=== PATIENT | female | born 1935 | race Caucasian/White ===

== ENCOUNTER 2018-07-20 11:52 | Inpatient (IN) ==
[2018-07-20 12:03] VITALS: BMI 23.0
[2018-07-20 12:43] LABS: BILIRUBIN,URINE NEGATIVE (NEGATIVE); BLOOD/HEMOGLOBIN,URINE 1+ (NEGATIVE); GLUCOSE, URINE 1+ (NEGATIVE); KETONES,URINE 2+ (NEGATIVE); LEUKOCYTE ESTERASE ,URINE 2+ (NEGATIVE); NITRITES,URINE NEGATIVE (NEGATIVE); PROTEIN,URINE 2+ (NEGATIVE); UROBILINOGEN,URINE NORMAL (NORMAL)
[2018-07-20 12:51] LABS: APPEARANCE,URINE CLEAR (CLEAR); BACTERIA,URINE TRACE /HPF (NEGATIVE); COLOR,URINE YELLOW (YELLOW); RBC,URINE 0-2 /HPF (NONE SEEN); SQUAMOUS EPITHELIAL CELL,UR RARE /HPF (NEGATIVE)
[2018-07-20 12:52] LABS: HYALINE CASTS, URINE RARE /LPF (NEGATIVE); MUCUS,URINE RARE /HPF (NEGATIVE)
[2018-07-20] MEDS ORDERED: TYLENOL 325 MG TAB PO ONE ×2 (13:00→13:02)
[2018-07-20 13:42] LABS: BASOPHILS % (AUTO) 0.2 % (0.2-1.0); HEMATOCRIT 35.8 % (36.0-47.0); HEMOGLOBIN 12.5 g/dL (12.0-16.0); LYMPHOCYTES % (AUTO) 7.6 % (21.0-51.0); MEAN CORPUSCULAR HEMOGLOBIN 31.6 pg (27.0-34.0); MEAN CORPUSCULAR HGB CONC 34.9 g/dL (33.0-35.0); MEAN CORPUSCULAR VOLUME 90.6 fL (80.0-100.0); MEAN PLATELET VOLUME 7.7 fL (7.4-11.0); MONOCYTES # (AUTO) 1.1 x10^3/uL (0.3-0.8); MONOCYTES % (AUTO) 8.7 % (0.0-13.0); NEUTROPHILS # (AUTO) 10.8 x10^3/uL (2.2-4.8); NEUTROPHILS % (AUTO) 83.5 % (42.0-75.0); PLATELET COUNT 277 X10^3/uL (150.0-450.0); RED BLOOD COUNT 3.95 X10^6/uL (3.5-5.4); RED CELL DISTRIBUTION WIDTH 12.3 % (11.6-16.5); WHITE BLOOD COUNT 12.9 X10^3/uL (3.6-10.0)
[2018-07-20 13:49] LABS: ALANINE AMINOTRANSFERASE 23 Units/L (12-78); ALBUMIN 3.4 g/dL (3.4-5.0); ALKALINE PHOSPHATASE 44 Units/L (46-116); ASPARTATE AMINO TRANSFERASE 21 Units/L (15-37); BLOOD UREA NITROGEN 16 mg/dL (7-18); CALCIUM 8.5 mg/dL (8.5-10.1); CARBON DIOXIDE 29.3 mmol/L (21-32); CHLORIDE 100 mmol/L (98-107); COR NA(FOR HYPERGLY) 137 mmol/L (136-145); CREATININE 1.33 mg/dL (0.55-1.02); SODIUM 137 mmol/L (136-145); TOTAL PROTEIN 6.6 g/dL (6.4-8.2); eGFR NON BLACK RACES 41 (>60)
[2018-07-20 13:51] LABS: LACTIC ACID 1.1 mmol/L (0.4-2.0)
[2018-07-20] MEDS ORDERED: NS 1000 ML 1,000 ML IV SCH (14:00)
--- NOTE | 2018-07-20 14:15 | RAD ---
HISTORY: Fever. Falls. Study: AP portable chest Comparison: None Findings: The lungs are clear. The heart size is borderline enlarged. Mild tortuosity of the aorta is noted. Mild degenerative changes present within both shoulders. I see no definite acute bony abnormalities . IMPRESSION: 1. Borderline cardiomegaly without evidence of failure. Reported By:
--- NOTE | 2018-07-20 16:01 | CT ---
LUMBAR SPINE CT WITHOUT IV CONTRAST CLINICAL INDICATION: Multiple falls TECHNIQUE: Multiple-row detector helical CT examination of the lumbar spine. Axial, sagittal, and cor onal reconstructed images. Dose reduction techniques including Automated Exposure Control (AEC) and a djustment of mA and kV were utlized. COMPARISON: None. FINDINGS: There is no evidence of acute fracture or subluxation. Normal alignment is maintained without scolios is or listhesis. Vertebral body heights are maintained. No aggressive osseous lesions are identified. Severe multilevel degenerative disc disease with multiple levels of disc bulging worst at L2-L3 and L3-L4. Extensive facet arthropathy. IMPRESSION: 1. Severe multilevel degenerative disc disease and disc bulges as above. No evidence of acute abnorma lity. There is likely severe stenosis at the L3-L4 level. Reported By:
--- NOTE | 2018-07-20 16:07 | DR.GENAD ---
HPI Time Seen Time Seen by Provider: 07/20/18 13:13 PCP Primary Care Physician: BRIAN MELARA Complaint/Symptoms Chief Complaint Doctors Comments: Patient was found at home on the floor by her daughter, does not know how long she was there. She does admit that she has been sleeping a lot the past three days and falling. Chief Complaint:: PATIENT HAS BEEN SLEEPING ALOT FOR THE LAST 2-3 DAYS, BACK PAIN, FALLEN TWICE IN THE LAST 2 DAYS. SHE FELL THIS MORNING IN THE BATHROOM AND LAYED THERE ABOUT 1 HOUR. NOT EATING OR DRINKING/FEVER. Source History Provided: Patient and Family Member Mode of Arrival Mode of Arrival: Wheelchair Timing Onset of Chief Complaint: 07/17/18 PMH PMH Past Medical History: Yes Past Medical History: Hypertension Past Surgical History: Yes Surgical History: Hysterectomy Family History History of Family Medical Conditions: No Social History Does patient currently use any type of tobacco product: No Have you used tobacco products in the last 12 months: No Type of Tobacco Use: None Does any household member use tobacco: No Alcohol Use: None Do you use any recreational Drugs:: No Lives With: Family Lives Where: Home infectious screening In the last 2 months have you had wt loss of >10#?: NO Have you had fever, night sweats or hemotysis?: No Have you traveled outside the country in the last 6 months?: No Isolation: Standard PE Vital Signs Vitals: Temperature 99.3 F Pulse Rate [Left Brachial] 79 Pulse Rate 105 Respiratory Rate 20 Blood Pressure [Left Arm] 140/65 Blood Pressure 143/66 O2 Sat by Pulse Oximetry 96 General Limitations: No Limitations (Alert, responsive in NAD) and Altered Mental Status General Appearance: Alert and In No Apparent Distress; negative In Distress Head Head Exam: Normal Inspection, Atraumatic and Normocephalic Eyes Eye exam: Normal Appearance, PERRL and EOMI ENT ENT Exam: Normal Exam, Normal Oropharynx and Normal External Ear Exam External Ear Exam: Normal External Inspection; negative Auricular Hematoma and Auricular Trauma TM/Canal Exam: Bilateral: Normal Mouth Exam: Normal Inspection Throat Exam: Normal Inspection Neck Neck Exam: Normal Inspection and Full ROM Chest Chest Inspection: Normal Inspection and Symmetric Chest Wall Rise Respiratory Respiratory Exam: Normal Lung Sounds Bilat; negative Accessory Muscle Use Respiratory Exam: Bilateral: Clear to Auscultation Cardiovascular Cardiovascular Exam: Regular Rate and Normal Rhythm Abdominal Exam Abdominal Exam: Normal Inspection, Normal Bowel Sounds, Soft and Tenderness; negative Distention, Guarding, Rebound and Rigidity Abdominal Tenderness: RLQ Extremities Extremities Exam: Normal Inspection and Full ROM Back Back Exam: Normal Inspection and Full ROM; negative (R) CVA Tenderness, (L) CVA Tenderness and Muscle Spasm Neurologic Neurological Exam: Alert, Oriented X3 and CN II-XII Intact Psychiatric Psychiatric Exam: Normal Affect, Normal Mood and Flat Affect Skin Skin Exam: Warm, Dry and Intact COURSE Treatment Treatment: NS ROR Labs Reviewed Laboratory Results Reviewed?: Yes Result Diagrams: 07/20/18 13:18 07/20/18 13:18 Laboratory: WBC 12.9 X10^3/uL (3.6-10.0) H 07/20/18 13:18 RBC 3.95 X10^6/uL (3.5-5.4) 07/20/18 13:18 Hgb 12.5 g/dL (12.0-16.0) 07/20/18 13:18 Hct 35.8 % (36.0-47.0) L 07/20/18 13:18 MCV 90.6 fL (80.0-100.0) 07/20/18 13:18 MCH 31.6 pg (27.0-34.0) 07/20/18 13:18 MCHC 34.9 g/dL (33.0-35.0) 07/20/18 13:18 RDW 12.3 % (11.6-16.5) 07/20/18 13:18 Plt Count 277 X10^3/uL (150.0-450.0) 07/20/18 13:18 MPV 7.7 fL (7.4-11.0) 07/20/18 13:18 Neut % (Auto) 83.5 % (42.0-75.0) H 07/20/18 13:18 Lymph % (Auto) 7.6 % (21.0-51.0) L 07/20/18 13:18 Castro % (Auto) 8.7 % (0.0-13.0) 07/20/18 13:18 Eos % (Auto) 0.0 % (0.9-2.9) L 07/20/18 13:18 Baso % (Auto) 0.2 % (0.2-1.0) 07/20/18 13:18 Neut # (Auto) 10.8 x10^3/uL (2.2-4.8) H 07/20/18 13:18 Lymph # (Auto) 1.0 X10^3/uL (1.3-2.9) L 07/20/18 13:18 [place] # (Auto) 1.1 x10^3/uL (0.3-0.8) H 07/20/18 13:18 Eos # (Auto) 0.0 x10^3/uL (0.0-0.2) 07/20/18 13:18 Baso # (Auto) 0.0 X10^3/uL (0.0-0.1) 07/20/18 13:18 Absolute Nucleated RBC 0.0 /100WBC 07/20/18 13:18 Sodium 137 mmol/L (136-145) 07/20/18 13:18 Corrected Sodium 137 mmol/L (136-145) 07/20/18 13:18 Potassium 3.6 mmol/L (3.5-5.1) 07/20/18 13:18 Chloride 100 mmol/L (98-107) 07/20/18 13:18 Carbon Dioxide 29.3 mmol/L (21-32) 07/20/18 13:18 BUN 16 mg/dL (7-18) 07/20/18 13:18 Creatinine 1.33 mg/dL (0.55-1.02) H 07/20/18 13:18 Est GFR (MDRD) Af Amer 49 (>60) L 07/20/18 13:18 Est GFR (MDRD) Non-Af 41 (>60) L 07/20/18 13:18 Glucose 115 mg/dL (65-99) H 07/20/18 13:18 Lactic Acid 1.1 mmol/L (0.4-2.0) 07/20/18 13:18 Calcium 8.5 mg/dL (8.5-10.1) 07/20/18 13:18 Corrected Calcium TNP 07/20/18 13:18 Total Bilirubin 0.60 mg/dL (0.2-1.0) 07/20/18 13:18 AST 21 Units/L (15-37) 07/20/18 13:18 ALT 23 Units/L (12-78) 07/20/18 13:18 Alkaline Phosphatase 44 Units/L (46-116) L 07/20/18 13:18 C-Reactive Protein 2.70 mg/L (0-3.0) 07/20/18 13:18 Total Protein 6.6 g/dL (6.4-8.2) 07/20/18 13:18 Albumin 3.4 g/dL (3.4-5.0) 07/20/18 13:18 Globulin 3.2 g/dL (2.5-4.5) 07/20/18 13:18 Albumin/Globulin Ratio 1.1 Ratio (1.1-2.1) 07/20/18 13:18 Specimen Type Clean catch urine 07/20/18 12:32 Urine Color Yellow (YELLOW) 07/20/18 12:32 Urine Appearance Clear (CLEAR) 07/20/18 12:32 Urine pH 6.0 (5.0 - 8.0) 07/20/18 12:32 Ur Specific [place] 1.020 (1.000-1.030) 07/20/18 12:32 Urine Protein 2+ (NEGATIVE) 07/20/18 12:32 Urine Glucose (UA) 1+ (NEGATIVE) 07/20/18 12:32 Urine Ketones 2+ (NEGATIVE) 07/20/18 12:32 Urine Occult Blood 1+ (NEGATIVE) 07/20/18 12:32 Urine Nitrite Negative (NEGATIVE) 07/20/18 12:32 Urine Bilirubin Negative (NEGATIVE) 07/20/18 12:32 Urine Urobilinogen Normal (NORMAL) 07/20/18 12:32 Ur Leukocyte Esterase 2+ (NEGATIVE) 07/20/18 12:32 Urine RBC 0-2 /HPF (NONE SEEN) 07/20/18 12:32 Urine WBC 0-2 /HPF (NONE SEEN) 07/20/18 12:32 Ur Squamous Epith Cells Rare /HPF (NEGATIVE) 07/20/18 12:32 Urine Bacteria Trace /HPF (NEGATIVE) 07/20/18 12:32 Hyaline Casts Rare /LPF (NEGATIVE) 07/20/18 12:32 Urine Mucus Rare /HPF (NEGATIVE) 07/20/18 12:32 Ur Culture Indicated? No/not indicated 07/20/18 12:32 XRAY XRAY Findings: Chest: Borderline cardiomegaly without evidence of failure ADDITIONAL NOTES Additional Notes Additional Notes: Spoke with Dr gibbons concerning patient and he agree to admit for further evaluation and treatment.
--- NOTE | 2018-07-20 17:12 | CT ---
HEAD CT WITHOUT IV CONTRAST CLINICAL INDICATION: Been sleeping a lot TECHNIQUE: Axial CT images from skull base to vertex without IV contrast.Dose reduction techniques in cluding Automated Exposure Control (AEC) and adjustment of mA and kV were utlized. COMPARISON: None FINDINGS: Diffuse patchy and confluent white matter hypoattenuation with associated volume loss. There is no e vidence of acute infarction, intracranial hemorrhage, mass or mass effect, or abnormal extra-axial co llection. The density of the larger dural venous sinuses is normal. Age-related, ex-vacuo dilatation of the ventricles and sulci. The skull base and calvarium are normal. The included paranasal sinuses and mastoid air cells are predominantly clear. IMPRESSION: 1. No acute intracranial abnormality. 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 Reported By:
[2018-07-20 18:17] LABS: CKMB % 0.8 % (<4); CREATINE KINASE MB 1.4 ng/mL (0-4.0); TROPONIN I 0.02 ng/mL (0-1.5)
[2018-07-20] MEDS ORDERED: TOPROL XL PO ONE (18:26)
[2018-07-20] MEDS: TOPROL XL PO SCH (18:30)
[2018-07-20] MEDS: PROCARDIA XL PO SCH (18:30)
[2018-07-20] MEDS: NS 1000 ML 1,000 ML IV SCH (18:30)
[2018-07-21] MEDS: TYLENOL 325 MG TAB PO PRN ×2 (00:02→12:09)
[2018-07-21] MEDS: NS 1000 ML 1,000 ML IV SCH ×2 (00:40→09:52)
[2018-07-21 06:13] LABS: BASOPHILS # (AUTO) 0.1 X10^3/uL (0.0-0.1); BASOPHILS % (AUTO) 0.5 % (0.2-1.0); EOSINOPHILS % (AUTO) 0.1 % (0.9-2.9); HEMATOCRIT 37.9 % (36.0-47.0); HEMOGLOBIN 13.6 g/dL (12.0-16.0); LYMPHOCYTES # (AUTO) 1.4 X10^3/uL (1.3-2.9); LYMPHOCYTES % (AUTO) 9.9 % (21.0-51.0); MEAN CORPUSCULAR HEMOGLOBIN 32.4 pg (27.0-34.0); MEAN CORPUSCULAR HGB CONC 35.8 g/dL (33.0-35.0); MEAN CORPUSCULAR VOLUME 90.4 fL (80.0-100.0); MEAN PLATELET VOLUME 8.1 fL (7.4-11.0); MONOCYTES # (AUTO) 1.2 x10^3/uL (0.3-0.8); MONOCYTES % (AUTO) 8.7 % (0.0-13.0); NEUTROPHILS # (AUTO) 11.5 x10^3/uL (2.2-4.8); NEUTROPHILS % (AUTO) 80.8 % (42.0-75.0); PLATELET COUNT 244 X10^3/uL (150.0-450.0); RED BLOOD COUNT 4.19 X10^6/uL (3.5-5.4); RED CELL DISTRIBUTION WIDTH 12.3 % (11.6-16.5); WHITE BLOOD COUNT 14.2 X10^3/uL (3.6-10.0)
[2018-07-21 06:37] LABS: ALANINE AMINOTRANSFERASE 22 Units/L (12-78); ALBUMIN 3.2 g/dL (3.4-5.0); ALKALINE PHOSPHATASE 45 Units/L (46-116); ASPARTATE AMINO TRANSFERASE 25 Units/L (15-37); BLOOD UREA NITROGEN 13 mg/dL (7-18); CALCIUM 8.5 mg/dL (8.5-10.1); CARBON DIOXIDE 28.2 mmol/L (21-32); CHLORIDE 105 mmol/L (98-107); COR CA(FOR HYPOALB) 9.1 mg/dL (8.5-10.1); COR NA(FOR HYPERGLY) 142 mmol/L (136-145); CREATININE 0.89 mg/dL (0.55-1.02); SODIUM 142 mmol/L (136-145); TOTAL PROTEIN 6.8 g/dL (6.4-8.2); eGFR NON BLACK RACES > 60 (>60)
[2018-07-21] MEDS ORDERED: POTASSIUM CHLORIDE LIQ 20 MEQ UDC PO PRN (06:56)
[2018-07-21] MEDS ORDERED: K-RIDER 10 MEQ/NS 100 ML 10 MEQ/100 ML BAG IV PRN (06:56)
[2018-07-21] MEDS ORDERED: K-LYTE EFFERVESCENT PO PRN (06:56)
[2018-07-21] MEDS ORDERED: POTASSIUM CHL 40 MEQ/NS 0.45% 500 ML IV PRN (06:56)
[2018-07-21] MEDS ORDERED: POTASSIUM CHL 60 MEQ/NS 0.45% 500 ML IV PRN (06:56)
[2018-07-21] MEDS ORDERED: TOPROL XL PO ONE (08:06)
[2018-07-21] MEDS: PROCARDIA XL PO SCH (08:34)
[2018-07-21] MEDS: TOPROL XL PO SCH (08:34)
[2018-07-21 11:59] LABS: BASOPHILS # (AUTO) 0.1 X10^3/uL (0.0-0.1); BASOPHILS % (AUTO) 0.7 % (0.2-1.0); HEMATOCRIT 36.5 % (36.0-47.0); HEMOGLOBIN 12.7 g/dL (12.0-16.0); LYMPHOCYTES # (AUTO) 1.1 X10^3/uL (1.3-2.9); LYMPHOCYTES % (AUTO) 7.8 % (21.0-51.0); MEAN CORPUSCULAR HEMOGLOBIN 31.8 pg (27.0-34.0); MEAN CORPUSCULAR HGB CONC 34.8 g/dL (33.0-35.0); MEAN CORPUSCULAR VOLUME 91.4 fL (80.0-100.0); MEAN PLATELET VOLUME 8.2 fL (7.4-11.0); MONOCYTES % (AUTO) 7.1 % (0.0-13.0); NEUTROPHILS # (AUTO) 11.4 x10^3/uL (2.2-4.8); NEUTROPHILS % (AUTO) 84.4 % (42.0-75.0); PLATELET COUNT 232 X10^3/uL (150.0-450.0); RED BLOOD COUNT 3.99 X10^6/uL (3.5-5.4); RED CELL DISTRIBUTION WIDTH 12.5 % (11.6-16.5); WHITE BLOOD COUNT 13.6 X10^3/uL (3.6-10.0)
[2018-07-21] MEDS: LOVENOX INJ 30 MG SYR SC SCH (13:44)
[2018-07-21] MEDS ORDERED: NS 100 ML IV + SPIKE MINIBAG* 100 ML IV ONE ×2 (13:45→20:12)
[2018-07-21] MEDS: ZOSYN VIAL 3.375 GRAMS IV SCH ×2 (13:48→21:04)
[2018-07-21] MEDS: COLACE CAP 100 MG PO SCH (21:03)
[2018-07-21] MEDS: MOTRIN TAB 600 MG PO PRN (21:03)
[2018-07-21] MEDS: MILK OF MAGNESIA PO SCH (21:03)
[2018-07-22] MEDS: NS 1000 ML 1,000 ML IV SCH ×4 (04:27→21:14)
[2018-07-22 06:10] LABS: BASOPHILS # (AUTO) 0.1 X10^3/uL (0.0-0.1); BASOPHILS % (AUTO) 0.7 % (0.2-1.0); EOSINOPHILS % (AUTO) 0.2 % (0.9-2.9); HEMATOCRIT 35.7 % (36.0-47.0); HEMOGLOBIN 12.5 g/dL (12.0-16.0); LYMPHOCYTES # (AUTO) 1.6 X10^3/uL (1.3-2.9); LYMPHOCYTES % (AUTO) 15.1 % (21.0-51.0); MEAN CORPUSCULAR HEMOGLOBIN 32.1 pg (27.0-34.0); MEAN CORPUSCULAR VOLUME 91.7 fL (80.0-100.0); MEAN PLATELET VOLUME 8.5 fL (7.4-11.0); MONOCYTES % (AUTO) 9.7 % (0.0-13.0); NEUTROPHILS # (AUTO) 7.8 x10^3/uL (2.2-4.8); NEUTROPHILS % (AUTO) 74.3 % (42.0-75.0); PLATELET COUNT 217 X10^3/uL (150.0-450.0); RED CELL DISTRIBUTION WIDTH 12.3 % (11.6-16.5); WHITE BLOOD COUNT 10.5 X10^3/uL (3.6-10.0)
[2018-07-22 06:20] LABS: ALANINE AMINOTRANSFERASE 24 Units/L (12-78); ALBUMIN 2.6 g/dL (3.4-5.0); ALKALINE PHOSPHATASE 40 Units/L (46-116); ASPARTATE AMINO TRANSFERASE 25 Units/L (15-37); BLOOD UREA NITROGEN 13 mg/dL (7-18); CALCIUM 8.1 mg/dL (8.5-10.1); CARBON DIOXIDE 29.1 mmol/L (21-32); CHLORIDE 105 mmol/L (98-107); COR CA(FOR HYPOALB) 9.2 mg/dL (8.5-10.1); CREATININE 0.97 mg/dL (0.55-1.02); SODIUM 141 mmol/L (136-145); TOTAL PROTEIN 5.7 g/dL (6.4-8.2); eGFR NON BLACK RACES 58 (>60)
[2018-07-22] MEDS ORDERED: TOPROL XL PO ONE (07:57)
[2018-07-22] MEDS ORDERED: NS 100 ML IV + SPIKE MINIBAG* 100 ML IV ONE ×3 (08:14→20:03)
[2018-07-22] MEDS: ZOSYN VIAL 3.375 GRAMS IV SCH ×3 (08:16→21:15)
[2018-07-22] MEDS: LOVENOX INJ 30 MG SYR SC SCH (08:16)
[2018-07-22] MEDS: TOPROL XL PO SCH (08:18)
[2018-07-22] MEDS: PROCARDIA XL PO SCH (08:18)
[2018-07-22] MEDS: MILK OF MAGNESIA PO SCH ×2 (08:19→21:18)
[2018-07-22] MEDS ORDERED: TYLENOL SUPP 650 MG PR PRN (17:01)
[2018-07-22] MEDS: COLACE CAP 100 MG PO SCH (21:17)
[2018-07-23] MEDS ORDERED: NS 100 ML IV + SPIKE MINIBAG* 100 ML IV ONE ×3 (05:57→21:53)
[2018-07-23 06:17] LABS: BASOPHILS # (AUTO) 0.1 X10^3/uL (0.0-0.1); BASOPHILS % (AUTO) 0.6 % (0.2-1.0); EOSINOPHILS % (AUTO) 0.2 % (0.9-2.9); HEMATOCRIT 35.8 % (36.0-47.0); HEMOGLOBIN 12.7 g/dL (12.0-16.0); LYMPHOCYTES % (AUTO) 9.9 % (21.0-51.0); MEAN CORPUSCULAR HEMOGLOBIN 32.3 pg (27.0-34.0); MEAN CORPUSCULAR HGB CONC 35.4 g/dL (33.0-35.0); MEAN CORPUSCULAR VOLUME 91.2 fL (80.0-100.0); MEAN PLATELET VOLUME 8.8 fL (7.4-11.0); MONOCYTES # (AUTO) 0.7 x10^3/uL (0.3-0.8); MONOCYTES % (AUTO) 7.1 % (0.0-13.0); NEUTROPHILS # (AUTO) 8.4 x10^3/uL (2.2-4.8); NEUTROPHILS % (AUTO) 82.2 % (42.0-75.0); PLATELET COUNT 196 X10^3/uL (150.0-450.0); RED BLOOD COUNT 3.93 X10^6/uL (3.5-5.4); RED CELL DISTRIBUTION WIDTH 12.2 % (11.6-16.5); WHITE BLOOD COUNT 10.3 X10^3/uL (3.6-10.0)
[2018-07-23] MEDS: ZOSYN VIAL 3.375 GRAMS IV SCH ×3 (06:19→22:13)
[2018-07-23 06:49] LABS: ALANINE AMINOTRANSFERASE 25 Units/L (12-78); ALBUMIN 2.7 g/dL (3.4-5.0); ALKALINE PHOSPHATASE 43 Units/L (46-116); ASPARTATE AMINO TRANSFERASE 28 Units/L (15-37); BLOOD UREA NITROGEN 7 mg/dL (7-18); CALCIUM 8.1 mg/dL (8.5-10.1); CARBON DIOXIDE 28.4 mmol/L (21-32); CHLORIDE 100 mmol/L (98-107); COR CA(FOR HYPOALB) 9.1 mg/dL (8.5-10.1); CREATININE 0.76 mg/dL (0.55-1.02); SODIUM 137 mmol/L (136-145); TOTAL PROTEIN 6.2 g/dL (6.4-8.2); eGFR NON BLACK RACES > 60 (>60)
[2018-07-23] MEDS ORDERED: TOPROL XL PO ONE (07:47)
[2018-07-23] MEDS: PROCARDIA XL PO SCH (08:43)
[2018-07-23] MEDS: LOVENOX INJ 30 MG SYR SC SCH (08:43)
[2018-07-23] MEDS: TOPROL XL PO SCH (08:43)
[2018-07-23] MEDS: MOTRIN TAB 600 MG PO PRN (08:47)
[2018-07-23] MEDS: MILK OF MAGNESIA PO SCH ×2 (08:49→22:19)
[2018-07-23] MEDS: NS 1000 ML 1,000 ML IV SCH (11:07)
[2018-07-23] MEDS: K-DUR TAB 20 MEQ PO SCH (13:24)
[2018-07-23] MEDS ORDERED: MAGNESIUM SULFATE 1 GRAM/100 mL PREMIX 1 GM/100 ML BAG IV PRN (21:50)
[2018-07-23] MEDS: COLACE CAP 100 MG PO SCH (22:18)
[2018-07-24] MEDS: NS 1000 ML 1,000 ML IV SCH ×2 (02:11→05:43)
[2018-07-24] MEDS ORDERED: NS 100 ML IV + SPIKE MINIBAG* 100 ML IV ONE (05:18)
[2018-07-24] MEDS: ZOSYN VIAL 3.375 GRAMS IV SCH (05:43)
[2018-07-24 06:43] LABS: BASOPHILS # (AUTO) 0.1 X10^3/uL (0.0-0.1); BASOPHILS % (AUTO) 0.5 % (0.2-1.0); EOSINOPHILS # (AUTO) 0.1 x10^3/uL (0.0-0.2); EOSINOPHILS % (AUTO) 0.9 % (0.9-2.9); HEMATOCRIT 31.8 % (36.0-47.0); HEMOGLOBIN 11.5 g/dL (12.0-16.0); LYMPHOCYTES # (AUTO) 1.3 X10^3/uL (1.3-2.9); LYMPHOCYTES % (AUTO) 12.7 % (21.0-51.0); MEAN CORPUSCULAR HEMOGLOBIN 32.6 pg (27.0-34.0); MEAN CORPUSCULAR HGB CONC 36.2 g/dL (33.0-35.0); MEAN CORPUSCULAR VOLUME 90.2 fL (80.0-100.0); MEAN PLATELET VOLUME 8.7 fL (7.4-11.0); MONOCYTES # (AUTO) 0.8 x10^3/uL (0.3-0.8); MONOCYTES % (AUTO) 8.1 % (0.0-13.0); NEUTROPHILS # (AUTO) 7.7 x10^3/uL (2.2-4.8); NEUTROPHILS % (AUTO) 77.8 % (42.0-75.0); PLATELET COUNT 224 X10^3/uL (150.0-450.0); RED BLOOD COUNT 3.52 X10^6/uL (3.5-5.4); WHITE BLOOD COUNT 9.9 X10^3/uL (3.6-10.0)
[2018-07-24 07:01] LABS: ALANINE AMINOTRANSFERASE 22 Units/L (12-78); ALBUMIN 2.4 g/dL (3.4-5.0); ALKALINE PHOSPHATASE 40 Units/L (46-116); ASPARTATE AMINO TRANSFERASE 22 Units/L (15-37); BLOOD UREA NITROGEN 7 mg/dL (7-18); CARBON DIOXIDE 27.7 mmol/L (21-32); CHLORIDE 101 mmol/L (98-107); COR CA(FOR HYPOALB) 9.3 mg/dL (8.5-10.1); CREATININE 0.77 mg/dL (0.55-1.02); MAGNESIUM 1.8 mg/dL (1.7-2.9); SODIUM 137 mmol/L (136-145); TOTAL PROTEIN 5.7 g/dL (6.4-8.2); eGFR NON BLACK RACES > 60 (>60)
[2018-07-24] MEDS ORDERED: TOPROL XL PO ONE (08:23)
[2018-07-24] MEDS: PROCARDIA XL PO SCH (08:33)
[2018-07-24] MEDS: K-DUR TAB 20 MEQ PO SCH (08:33)
[2018-07-24] MEDS: TOPROL XL PO SCH (08:33)
[2018-07-24] MEDS: LOVENOX INJ 30 MG SYR SC SCH (08:34)
[2018-07-24] MEDS: MILK OF MAGNESIA PO SCH (08:35)
[2018-07-24 14:09] VITALS: BP 133/65
== END 2018-07-24 12:44 | disposition swing bed (61) | DRG 690 ==
LOC: MED/SURG 11:58 → ER 11:58 → OBSVTOIN 16:18 → MED/SURG 17:06
PROVIDERS: ADMIT Obstetrics & Gynecology Obstetrics; ATTEND Obstetrics & Gynecology Obstetrics
DX: W19.XXXA Unspecified fall, initial encounter; Y92.002 Bathroom of unspecified non-institutional (private) residence as the place of occurrence of the external cause; R53.1 Weakness; N12 Tubulo-interstitial nephritis, not specified as acute or chronic; Z91.81 History of falling; I10 Essential (primary) hypertension; R10.31 Right lower quadrant pain; M54.9 Dorsalgia, unspecified; R41.82 Altered mental status, unspecified; R26.81 Unsteadiness on feet
CPT/HCPCS: 36415; 70450; 71010; 71045; 72131; 80053; 81001; 82550; 82553; 83605; 83735; 84132; 84484; 85025; 86140; 87040; 87086; 93005; 93010; 96365; 97110; 97162; 97165; 97530; 97535; 99284; 99285; A4216; A4222; J1650; J2543; J3480; J3490; J7030; J7050; J8499

== ENCOUNTER 2018-07-24 12:44 | Inpatient (IN) ==
[2018-07-24] MEDS ORDERED: TYLENOL 325 MG TAB PO PRN (13:57)
[2018-07-24] MEDS ORDERED: POTASSIUM CHLORIDE LIQ 20 MEQ UDC PO PRN (13:57)
[2018-07-24] MEDS ORDERED: MOTRIN TAB 600 MG PO PRN (13:57)
[2018-07-24] MEDS ORDERED: K-LYTE EFFERVESCENT PO PRN (13:57)
[2018-07-24] MEDS ORDERED: K-RIDER 10 MEQ/NS 100 ML 10 MEQ/100 ML BAG IV PRN (13:57)
[2018-07-24] MEDS ORDERED: TYLENOL SUPP 650 MG PR PRN (13:57)
[2018-07-24] MEDS ORDERED: POTASSIUM CHL 60 MEQ/NS 0.45% 500 ML IV PRN (13:57)
[2018-07-24] MEDS ORDERED: POTASSIUM CHL 40 MEQ/NS 0.45% 500 ML IV PRN (13:57)
[2018-07-24] MEDS ORDERED: ZOSYN VIAL 3.375 GRAMS IV SCH (14:00)
[2018-07-24] MEDS: ZOSYN VIAL 3.375 GRAMS 3.375 G in NS 100 ML IV + SPIKE MINIBAG* 100 ML IV SCH ×2 (15:18→21:52)
[2018-07-24] MEDS: MAGNESIUM SULFATE 1 GRAM/100 mL PREMIX 1 GM/100 ML BAG IV PRN ×2 (18:24→20:01)
[2018-07-24] MEDS: COLACE CAP 100 MG PO SCH (20:00)
[2018-07-24] MEDS: MILK OF MAGNESIA PO SCH (20:06)
[2018-07-25] MEDS: ZOSYN VIAL 3.375 GRAMS 3.375 G in NS 100 ML IV + SPIKE MINIBAG* 100 ML IV SCH ×3 (06:00→21:24)
[2018-07-25] MEDS ORDERED: TOPROL XL PO ONE (08:37)
[2018-07-25] MEDS: TOPROL XL PO SCH (09:11)
[2018-07-25] MEDS: LOVENOX INJ 30 MG SYR SC SCH (09:11)
[2018-07-25] MEDS: PROCARDIA XL PO SCH (09:11)
[2018-07-25] MEDS: K-DUR TAB 20 MEQ PO SCH (09:11)
[2018-07-25] MEDS: MILK OF MAGNESIA PO SCH ×2 (09:12→21:24)
[2018-07-25] MEDS: COLACE CAP 100 MG PO SCH (21:23)
[2018-07-26] MEDS: ZOSYN VIAL 3.375 GRAMS 3.375 G in NS 100 ML IV + SPIKE MINIBAG* 100 ML IV SCH ×3 (06:31→21:27)
[2018-07-26] MEDS ORDERED: TOPROL XL PO ONE (07:22)
[2018-07-26] MEDS: MILK OF MAGNESIA PO SCH ×3 (08:39→21:26)
[2018-07-26] MEDS: PROCARDIA XL PO SCH (08:40)
[2018-07-26] MEDS: K-DUR TAB 20 MEQ PO SCH (08:40)
[2018-07-26] MEDS: TOPROL XL PO SCH (08:40)
[2018-07-26] MEDS: LOVENOX INJ 30 MG SYR SC SCH (08:41)
[2018-07-26] MEDS ORDERED: NS 250 ML IV 250 ML IV ONE (13:33)
[2018-07-26] MEDS: COLACE CAP 100 MG PO SCH (21:26)
[2018-07-27 05:08] LABS: BASOPHILS % (AUTO) 0.7 % (0.2-1.0); EOSINOPHILS # (AUTO) 0.2 x10^3/uL (0.0-0.2); EOSINOPHILS % (AUTO) 3.3 % (0.9-2.9); HEMOGLOBIN 11.2 g/dL (12.0-16.0); LYMPHOCYTES # (AUTO) 1.1 X10^3/uL (1.3-2.9); LYMPHOCYTES % (AUTO) 17.6 % (21.0-51.0); MEAN CORPUSCULAR HEMOGLOBIN 31.9 pg (27.0-34.0); MEAN CORPUSCULAR HGB CONC 35.1 g/dL (33.0-35.0); MEAN CORPUSCULAR VOLUME 90.7 fL (80.0-100.0); MEAN PLATELET VOLUME 7.8 fL (7.4-11.0); MONOCYTES # (AUTO) 0.7 x10^3/uL (0.3-0.8); MONOCYTES % (AUTO) 10.5 % (0.0-13.0); NEUTROPHILS # (AUTO) 4.3 x10^3/uL (2.2-4.8); NEUTROPHILS % (AUTO) 67.9 % (42.0-75.0); PLATELET COUNT 314 X10^3/uL (150.0-450.0); RED BLOOD COUNT 3.53 X10^6/uL (3.5-5.4); RED CELL DISTRIBUTION WIDTH 12.3 % (11.6-16.5); WHITE BLOOD COUNT 6.3 X10^3/uL (3.6-10.0)
[2018-07-27 05:10] LABS: BLOOD UREA NITROGEN 8 mg/dL (7-18); CALCIUM 8.6 mg/dL (8.5-10.1); CARBON DIOXIDE 28.3 mmol/L (21-32); CHLORIDE 106 mmol/L (98-107); CREATININE 0.87 mg/dL (0.55-1.02); SODIUM 141 mmol/L (136-145); eGFR NON BLACK RACES > 60 (>60)
[2018-07-27] MEDS: ZOSYN VIAL 3.375 GRAMS 3.375 G in NS 100 ML IV + SPIKE MINIBAG* 100 ML IV SCH ×3 (05:35→21:37)
[2018-07-27] MEDS ORDERED: TOPROL XL PO ONE (08:14)
[2018-07-27] MEDS: K-DUR TAB 20 MEQ PO SCH (08:53)
[2018-07-27] MEDS: PROCARDIA XL PO SCH (08:53)
[2018-07-27] MEDS: LOVENOX INJ 30 MG SYR SC SCH (08:53)
[2018-07-27] MEDS: TOPROL XL PO SCH (08:53)
[2018-07-27] MEDS: MILK OF MAGNESIA PO SCH ×2 (12:14→20:19)
[2018-07-27] MEDS: COLACE CAP 100 MG PO SCH (20:19)
[2018-07-28] MEDS: ZOSYN VIAL 3.375 GRAMS 3.375 G in NS 100 ML IV + SPIKE MINIBAG* 100 ML IV SCH ×2 (06:11→13:05)
[2018-07-28] MEDS ORDERED: TOPROL XL PO ONE (08:19)
[2018-07-28] MEDS: LOVENOX INJ 30 MG SYR SC SCH (08:58)
[2018-07-28] MEDS: PROCARDIA XL PO SCH (08:58)
[2018-07-28] MEDS: K-DUR TAB 20 MEQ PO SCH (08:58)
[2018-07-28] MEDS: TOPROL XL PO SCH (08:58)
[2018-07-28 09:32] VITALS: BP 184/80
[2018-07-28] MEDS: MILK OF MAGNESIA PO SCH (09:46)
== END 2018-07-28 17:40 | disposition home health service (06) | DRG 949 ==
LOC: MED/SURG 12:44
PROVIDERS: ADMIT Obstetrics & Gynecology Obstetrics; ATTEND Obstetrics & Gynecology Obstetrics
DX: N12 Tubulo-interstitial nephritis, not specified as acute or chronic; R50.9 Fever, unspecified; Z91.81 History of falling; R53.1 Weakness; M54.9 Dorsalgia, unspecified; R10.84 Generalized abdominal pain; W19.XXXA Unspecified fall, initial encounter; R26.89 Other abnormalities of gait and mobility; R40.4 Transient alteration of awareness; R40.0 Somnolence; Z51.89 Encounter for other specified aftercare; I10 Essential (primary) hypertension; R10.31 Right lower quadrant pain
CPT/HCPCS: 36415; 80048; 83735; 84132; 85025; 97110; 97112; 97116; 97163; 97165; 97530; 97535; A4216; A4222; J1650; J2543; J3475; J7050